=== PATIENT | male | born 1935 | race Caucasian/White ===

== ENCOUNTER 2020-12-30 18:37 | Emergency (ER) | payer MEDICARE, BC, SELFPAY ==
[2020-12-30 19:00] VITALS: BP 190/115; PULSE 105; RESP 16; TEMP 36.5; O2SAT 97; BMI 21.5
--- NOTE | 2020-12-30 19:09 | CTR_ITS ---
PROCEDURE INFORMATION: Exam: CT Cervical Spine Without Contrast Exam date and time: 12/30/2020 7:15 PM Age: 85 years old Clinical indication: Injury or trauma; Blunt trauma; Patient HX: C/O confusion and 2 x falls today; Additional info: Fall TECHNIQUE: Imaging protocol: Computed tomography images of the cervical spine without contrast. Radiation optimization: All CT scans at this facility use at least one of these dose optimization techniques: automated exposure control; mA and/or kV adjustment per patient size (includes targeted exams where dose is matched to clinical indication); or iterative reconstruction. COMPARISON: No relevant prior studies available. RADIATION DOSE METRICS: Total DLP (mGy-cm): 556.35 FINDINGS: Vertebrae: No acute fractures. No traumatic malalignment. Reversal of curvature. Severe diffuse spondyloarthropathy. There is very severe to complete disc height loss at each level. Osteophytic spurring of the vertebral endplates diffusely. Scattered vertebral endplate erosions. Soft tissues: Unremarkable. Vasculature: Bilateral carotid artery bulb region calcified atherosclerotic plaque formation. Lungs: Lung apices are normal. CT/CT cervical spin wo con* [id number] IMPRESSION: Negative for acute cervical spine fracture. Radiation Dose CTDIVOL = (mGy): DLP = 556.35 (mGy-cm)
--- NOTE | 2020-12-30 19:09 | XRR_ITS ---
PROCEDURE INFORMATION: Exam: XR Chest Exam date and time: 12/30/2020 7:46 PM Age: 85 years old Clinical indication: Other: Ams/confusion/disorientation TECHNIQUE: Imaging protocol: XR of the chest Views: 1 view. COMPARISON: No relevant prior studies available. FINDINGS: Lungs: Unremarkable. No consolidation. Pleural spaces: Unremarkable. No pleural effusion. No pneumothorax. Heart/Mediastinum: Unremarkable. No cardiomegaly. Mild atherosclerosis of thoracic aorta. Bones/joints: Unremarkable. Moderate glenohumeral joint osteoarthritis changes. XR/XR chest 1V portable [id number] IMPRESSION: No acute findings.
--- NOTE | 2020-12-30 19:09 | CTR_ITS ---
PROCEDURE INFORMATION: Exam: CT Head Without Contrast Exam date and time: 12/30/2020 7:15 PM Age: 85 years old Clinical indication: Altered mental status/memory loss; Confusion or disorientation; Patient HX: C/O confusion and 2x falls today denies loc; Additional info: Fall/confusion TECHNIQUE: Imaging protocol: Computed tomography of the head without contrast. Radiation optimization: All CT scans at this facility use at least one of these dose optimization techniques: automated exposure control; mA and/or kV adjustment per patient size (includes targeted exams where dose is matched to clinical indication); or iterative reconstruction. COMPARISON: No relevant prior studies available. RADIATION DOSE METRICS: Total DLP (mGy-cm): 943.1 FINDINGS: Brain: There is moderate cerebral atrophy. There is mild diffuse heterogeneity of the white matter attenuation, consistent with chronic white matter ischemic changes. No intracranial hemorrhage. Egan matter and white matter interfaces are preserved. No intracranial mass. No acute brain ischemia. No midline shift of brain. Cerebral ventricles: No ventriculomegaly. Bones/joints: Unremarkable. No acute fracture. Paranasal sinuses: Visualized sinuses are unremarkable. No fluid levels. Mastoid air cells: Visualized mastoid air cells are well aerated. Orbital cavity: Orbits are symmetric. Vasculature: Scattered intracranial atherosclerosis. Soft tissues: Unremarkable. CT/CT head wo con* [id number] IMPRESSION: Negative for acute intracranial abnormality. Radiation Dose CTDIVOL = (mGy): DLP = 943.1 (mGy-cm)
--- NOTE | 2020-12-30 19:25 | ED_ITS ---
Documented by User: BRENDA Wadsworth 12/30/20 23:32 HPI - Altered Mental Status General: Chief Complaint: Fall Stated Complaint: disoriented, stomach pain Time Seen by Provider: 12/30/20 19:11 Source: patient and police Mode of arrival: other (police) Limitations: altered mental status History of Present Illness: HPI narrative: Patient is an 85-year-old male who presents to ED today via police for complaints of altered mental status. chief medical officer in the room tells me that patient apparently lives in [place], [place]. The officer received a call this afternoon stating there was an elderly gentleman at the [place] boat [place] that appeared disoriented. The [place] police officer came and picked patient up. Officer states that patient slept in his truck last night. Patient has no idea how or why he got to the boat ramp. Patient told the officer he is a . Patient cannot tell me any family members to get a hold of for further history. Patient tells me he sustained two separate falls today because his knees gave out . Patient reports intermittent stomach pains for several months. He tells me he sees his primary care provider regularly. Patient can tell me his full name, , current address. MD complaint: altered mental status and confusion Onset (ago): unknown Associated symptoms: Reports no associated symptoms Review of Systems Const: Denies: fever(s) or chills Eyes: Denies: change in vision Card: Denies: chest pain Resp: Denies: dyspnea GI: Reports: abdominal pain; Denies: nausea, vomiting, diarrhea or change in stool character : Denies: flank pain or dysuria Musc: Reports: extremity pain (bilateral knees); Denies: neck pain, back pain, extremity swelling, joint pain or joint swelling Neuro: Denies: headache(s) or dizziness Physical Exam Const: COMMON NORMALS: no acute distress, average body habitus, alert and well nourished EXAM LIMITATIONS: altered mental status GENERAL APPEARANCE: cooperative ORIENTATION/CONSCIOUSNESS: Yes awake and Yes oriented to person HENMT: COMMON NORMALS: normocephalic HEAD & SCALP: normocephalic and other (small abrasion to L forehead) Eye: COMMON NORMALS: Equal, round and reactive pupils present and EOMs intact bilaterally GENERAL EYE: appearance normal, both eyes and all related structures PUPIL: Yes Equal, round and reactive pupils present Neck/C-Spine: COMMON NORMALS: full ROM CERVICAL SPINE: No pain with cervical ROM and No Cervical spine tenderness Resp: COMMON NORMALS: normal respiratory effort and clear to auscultation bilaterally AUSCULTATION: clear to auscultation bilaterally Cardio: COMMON NORMALS: regular rate and regular rhythm RATE: regular rate RHYTHM: regular rhythm GI: COMMON NORMALS: Normal to inspection, nondistended, normoactive bowel sounds present, Soft to palpation, non-tender, No hepatosplenomegaly present and no masses PALPATION: Yes Soft to palpation and Yes No hepatosplenomegaly present Extremity: NARRATIVE EXTREMITY EXAM: small abrasion to L anterior knee GENERAL: Yes normal exam except as noted Neuro: JONNATHAN COMA SCALE: document GCS findings Venus coma scale eye opening: Spontaneous Jonnathan coma scale verbal response: Orientated Venus coma scale motor response: Obey commands Jonnathan coma scale total score: 15 COMMON NORMALS: CN's II-XII intact bilaterally, moves all extremities, no focal motor deficits, no sensory deficits noted and gait normal SENSORIUM/ORIENTATION: Yes alert and Yes oriented to person Course Vital Signs: Vital signs: Vital Signs Temperature 97.7 F 12/30/20 19:00 Pulse Rate 64 12/31/20 03:38 Respiratory Rate 16 12/31/20 03:38 Blood Pressure 147/109 12/30/20 23:03 Pulse Oximetry 94 12/31/20 03:38 MDM - Altered Mental Status MDM Narrative: Medical decision making narrative: Patient had a card on him that had a phone number and said it was his power of claim attorney. They were located in [place]. We have tried contacting his number several times and have left messages. chief medical officer contacted [facility] who did a drive by of patient's residence in [place]. They did confirm that patient lives on [address] like he [place] said. They knocked on the door of one of patient's neighbors and they were aware of patient. They said they would be willing to come get patient in the morning however they are elderly and cannot drive tonight. They do state patient at baseline is a little confused. Patient's work-up here overall looks okay. His urine is suspicious for a UTI as he has 55-[address] shows chronic changes. I will start patient on IV antibiotics. I have spoken to Dr. Ceballos about the best course of action for this patient. He recommends discharging from the ED and having neighbors come pick him up in the morning. Lab Data: Labs: Lab Results 12/30/20 12/30/20 12/30/20 Range/Units 19:40 19:40 19:40 WBC 9.8 (4.0-10.0) 10^3/ uL RBC 4.52 (4.1-5.3) 10^6/u L Hgb 14.0 (11.7-16.6) g/dL Hct 43.2 (42.0-52.0) % MCV 95.6 H (80-94) fL MCH 31.0 (28.0-34.0) pg MCHC 32.4 (30.0-36.0) g/dL RDW 14.1 (12.1-15.1) % Plt Count 206 (130-400) 10^3/c mm MPV 10.9 H (7.4-10.4) fL Neut % (Auto) 84.6 % Lymph % (Auto) 6.6 % [place] % (Auto) 8.0 % Eos % (Auto) 0.1 % Baso % (Auto) 0.4 % Neut # (Auto) 8.31 H (1.8-7.7) 10^3/u L Lymph # (Auto) 0.7 L (0.8-4.8) 10^3/u L [place] # (Auto) 0.8 (0.2-0.9) 10^3/u L Eos # (Auto) 0.0 (0.0-0.8) 10^3/u L Baso # (Auto) 0.0 (0.0-0.1) 10^3/u L Nucleated RBC % (a uto) 0 % Nucleated RBCs # 0.0 /100WBC Sodium 137 (136-145) mmol/L Potassium 3.7 (3.5-5.1) mmol/L Chloride 100 (98-107) mmol/L Carbon Dioxide 25 (22-29) mmol/L Anion Gap 15.7 (5-19) BUN 15 (8-23) mg/dL Creatinine 0.9 (0.7-1.2) mg/dL GFR Calculation Not Reportable Glucose 100 (65-115) mg/dL Calculated Osmolal ity 285 (285-295) mOsm/k g Lactic Acid 1.3 (0.5-2.2) mmol/L Calcium 9.1 (8.5-10.5) mg/dL Total Bilirubin 1.1 (0.15-1.2) mg/dL AST 26 (0-40) U/L ALT 11 (0-41) U/L Alkaline Phosphata se 92 (40-130) IU/L Total Protein 7.2 (6.6-8.7) g/dL Albumin 4.7 (3.5-5.2) g/dL Globulin 2.5 (1.3-4.6) g/dL Urine Color (Yellow) Urine Appearance (CLEAR) Urine pH (5-7) Ur Specific Gravit y (1.005-1.030) Urine Protein (Negative) Urine Glucose (UA) (Normal) Urine Ketones (Negative) Urine Blood (Negative) Urine Nitrate (Negative) Urine Bilirubin (Negative) Urine Urobilinogen (Negative) mg/dL Ur Leukocyte Jen ase (Negative) Urine RBC (0-2) /hpf Urine WBC (0-5) /hpf Ur Squamous Epith Cells (0-5) /hpf Amorphous Sediment Urine Bacteria (NONE) /hpf 12/30/20 Range/Units 20:40 WBC (4.0-10.0) 10^3/ uL RBC (4.1-5.3) 10^6/u L Hgb (11.7-16.6) g/dL Hct (42.0-52.0) % MCV (80-94) fL MCH (28.0-34.0) pg MCHC (30.0-36.0) g/dL RDW (12.1-15.1) % Plt Count (130-400) 10^3/c mm MPV (7.4-10.4) fL Neut % (Auto) % Lymph % (Auto) % [place] % (Auto) % Eos % (Auto) % Baso % (Auto) % Neut # (Auto) (1.8-7.7) 10^3/u L Lymph # (Auto) (0.8-4.8) 10^3/u L [place] # (Auto) (0.2-0.9) 10^3/u L Eos # (Auto) (0.0-0.8) 10^3/u L Baso # (Auto) (0.0-0.1) 10^3/u L Nucleated RBC % (a uto) % Nucleated RBCs # /100WBC Sodium (136-145) mmol/L Potassium (3.5-5.1) mmol/L Chloride (98-107) mmol/L Carbon Dioxide (22-29) mmol/L Anion Gap (5-19) BUN (8-23) mg/dL Creatinine (0.7-1.2) mg/dL GFR Calculation Glucose (65-115) mg/dL Calculated Osmolal ity (285-295) mOsm/k g Lactic Acid (0.5-2.2) mmol/L Calcium (8.5-10.5) mg/dL Total Bilirubin (0.15-1.2) mg/dL AST (0-40) U/L ALT (0-41) U/L Alkaline Phosphata se (40-130) IU/L Total Protein (6.6-8.7) g/dL Albumin (3.5-5.2) g/dL Globulin (1.3-4.6) g/dL Urine Color Yellow (Yellow) Urine Appearance Sl hazy (CLEAR) Urine pH 5 (5-7) Ur Specific Gravit y 1.020 (1.005-1.030) Urine Protein Trace (Negative) Urine Glucose (UA) Norm (Normal) Urine Ketones 1+ H (Negative) Urine Blood 2+ H (Negative) Urine Nitrate Negative (Negative) Urine Bilirubin Neg (Negative) Urine Urobilinogen Norm (Negative) mg/dL Ur Leukocyte Jen ase Negative (Negative) Urine RBC 0-4 H (0-2) /hpf Urine WBC 55-80 H (0-5) /hpf Ur Squamous Epith Cells 0-4 H (0-5) /hpf Amorphous Sediment Not Reportable Urine Bacteria 1+ H (NONE) /hpf Imaging Data^: CT Head: Radiologist's impression: [address] [address] [address] Scan Report Signed Patient: Marnie Galvez #: [id number] : 5Acct#:[id number] Age/Sex: 85 / MADM Date: 12/30/20 Loc: ERRoom/Bed: Attending Dr: Ordering Provider/Ordering MD: Floridalma Chaney Date of Service: 12/30/20 Procedure(s): CT head wo con* [id number] Accession Number(s): [id number] Report Number: [id number] PROCEDURE INFORMATION: Exam: CT Head Without Contrast Exam date and time: 12/30/2020 7:15 PM Age: 85 years old Clinical indication: Altered mental status/memory loss; Confusion or disorientation; Patient HX: C/O confusion and 2x falls today denies loc; Additional info: Fall/confusion TECHNIQUE: Imaging protocol: Computed tomography of the head without contrast. Radiation optimization: All CT scans at this facility use at least one of these dose optimization techniques: automated exposure control; mA and/or kV adjustment per patient size (includes targeted exams where dose is matched to clinical indication); or iterative reconstruction. COMPARISON: No relevant prior studies available. RADIATION DOSE METRICS: Total DLP (mGy-cm): 943.1 FINDINGS: Brain: There is moderate cerebral atrophy. There is mild diffuse heterogeneity of the white matter attenuation, consistent with chronic white matter ischemic changes. No intracranial hemorrhage. Egan matter and white matter interfaces are preserved. No intracranial mass. No acute brain ischemia. No midline shift of brain. Cerebral ventricles: No ventriculomegaly. Bones/joints: Unremarkable. No acute fracture. Paranasal sinuses: Visualized sinuses are unremarkable. No fluid levels. Mastoid air cells: Visualized mastoid air cells are well aerated. Orbital cavity: Orbits are symmetric. Vasculature: Scattered intracranial atherosclerosis. Soft tissues: Unremarkable. CT/CT head wo con* [id number] IMPRESSION: Negative for acute intracranial abnormality. Radiation Dose CTDIVOL = (mGy): DLP = 943.1 (mGy-cm) Dictated By:Rosalino Beard Signed By:Scarlet Beard Date/Time:12/30/202007 DD/ 05 CT cervical: Radiologist's impression: [address] [place] [address] CT Scan Report Signed Patient: Misha Galvez Unit #: [id number] : 1935 Age/Sex: 85 / M ADM Date: 12/30/20 Loc: ER Room/Bed: Attending Dr: Ordering Provider/Ordering MD: Floridalma Chaney Date of Service: 12/30/20 Procedure(s): CT cervical spin wo con* [id number] Accession Number(s): [id number] Report Number: [id number] PROCEDURE INFORMATION: Exam: CT Cervical Spine Without Contrast Exam date and time: 12/30/2020 7:15 PM Age: 85 years old Clinical indication: Injury or trauma; Blunt trauma; Patient HX: C/O confusion and 2 x falls today; Additional info: Fall TECHNIQUE: Imaging protocol: Computed tomography images of the cervical spine without contrast. Radiation optimization: All CT scans at this facility use at least one of these dose optimization techniques: automated exposure control; mA and/or kV adjustment per patient size (includes targeted exams where dose is matched to clinical indication); or iterative reconstruction. COMPARISON: No relevant prior studies available. RADIATION DOSE METRICS: Total DLP (mGy-cm): 556.35 FINDINGS: Vertebrae: No acute fractures. No traumatic malalignment. Reversal of curvature. Severe diffuse spondyloarthropathy. There is very severe to complete disc height loss at each level. Osteophytic spurring of the vertebral endplates diffusely. Scattered vertebral endplate erosions. Soft tissues: Unremarkable. Vasculature: Bilateral carotid artery bulb region calcified atherosclerotic plaque formation. Lungs: Lung apices are normal. CT/CT cervical spin wo con* [id number] IMPRESSION: Negative for acute cervical spine fracture. Radiation Dose CTDIVOL = (mGy): DLP = 556.35 (mGy-cm) Dictated By: Rosalino Beard Signed By: Rosalino Beard Signed Date/Time: 12/30/202010 DD/ 08 CXR: Radiologist's impression: [address] [address] XRay Report Signed Patient: Misha Galvez Unit #: [id number] : 1935 Age/Sex: 85 / M ADM Date: 12/30/20 Loc: ER Room/Bed: Attending Dr: Ordering Provider/Ordering MD: Floridalma Chaney Date of Service: 12/30/20 Procedure(s): XR chest 1V portable [id number] Accession Number(s): [id number] Report Number: [id number] PROCEDURE INFORMATION: Exam: XR Chest Exam date and time: 12/30/2020 7:46 PM Age: 85 years old Clinical indication: Other: Ams/confusion/disorientation TECHNIQUE: Imaging protocol: XR of the chest Views: 1 view. COMPARISON: No relevant prior studies available. FINDINGS: Lungs: Unremarkable. No consolidation. Pleural spaces: Unremarkable. No pleural effusion. No pneumothorax. Heart/Mediastinum: Unremarkable. No cardiomegaly. Mild atherosclerosis of thoracic aorta. Bones/joints: Unremarkable. Moderate glenohumeral joint osteoarthritis changes. XR/XR chest 1V portable [id number] IMPRESSION: No acute findings. Dictated By: Rosalino Beard Signed By: Rosalino Beard Signed Date/Time: 12/30/202018 DD/ 16 Discharge Plan Discharge Patient Disposition: Home Clinical Impression: Urinary tract infection Qualifiers: Urinary tract infection type: acute cystitis Hematuria presence: with hematuria Qualified Code(s): N30.01 - Acute cystitis with hematuria Condition: Stable Prescriptions: New Macrobid 100 mg capsule 100 mg PO BID 7 Days Qty: 14 RF: 0 Discharge Orders: Discharge ED (Routine); Ordered 12/30/20 Ordered By: Floridalma Chaney Patient Instructions: Urinary Tract Infection in Men (ED) Coding Level of Care Code ED Communications Marketing Intern for Chg Fwd Exam Comprehensive Documented by User: Lisy Ceballos MD, [facility] – [place], [place] 01/01/21 00:50 HPI - Altered Mental Status General: Chief Complaint: Fall Stated Complaint: disoriented, stomach pain Time Seen by Provider: 12/30/20 19:11 Course Vital Signs: Vital signs: Vital Signs Temperature 97.7 F 12/30/20 19:00 Pulse Rate 64 12/31/20 03:38 Respiratory Rate 16 12/31/20 03:38 Blood Pressure 147/109 12/30/20 23:03 Pulse Oximetry 94 12/31/20 03:38 MDM - Altered Mental Status MDM Narrative: Medical decision making narrative: Kindly see the nurse practitioner's note for complete history and physical examination. I agree with her findings. Essentially this is a pleasant 85-year-old male who likely has onset of dementia. He drove down from [place] to this area yesterday and he does not know why. He was found at the side of the road and was confused. Police brought him here for evaluation. In the emergency department evaluation is unremarkable and we were able to get in touch with his neighbors who will come get him tomorrow morning. He will be kept here overnight until then. Medical Records: Attestation: I reviewed the patient's medical records. Lab Data: Attestation: I reviewed the patient's lab results. Labs: Lab Results 12/30/20 12/30/20 12/30/20 Range/Units 19:40 19:40 19:40 WBC 9.8 (4.0-10.0) 10^3/ uL RBC 4.52 (4.1-5.3) 10^6/u L Hgb 14.0 (11.7-16.6) g/dL Hct 43.2 (42.0-52.0) % MCV 95.6 H (80-94) fL MCH 31.0 (28.0-34.0) pg MCHC 32.4 (30.0-36.0) g/dL RDW 14.1 (12.1-15.1) % Plt Count 206 (130-400) 10^3/c mm MPV 10.9 H (7.4-10.4) fL Neut % (Auto) 84.6 % Lymph % (Auto) 6.6 % [place] % (Auto) 8.0 % Eos % (Auto) 0.1 % Baso % (Auto) 0.4 % Neut # (Auto) 8.31 H (1.8-7.7) 10^3/u L Lymph # (Auto) 0.7 L (0.8-4.8) 10^3/u L [place] # (Auto) 0.8 (0.2-0.9) 10^3/u L Eos # (Auto) 0.0 (0.0-0.8) 10^3/u L Baso # (Auto) 0.0 (0.0-0.1) 10^3/u L Nucleated RBC % (a uto) 0 % Nucleated RBCs # 0.0 /100WBC Sodium 137 (136-145) mmol/L Potassium 3.7 (3.5-5.1) mmol/L Chloride 100 (98-107) mmol/L Carbon Dioxide 25 (22-29) mmol/L Anion Gap 15.7 (5-19) BUN 15 (8-23) mg/dL Creatinine 0.9 (0.7-1.2) mg/dL GFR Calculation Not Reportable Glucose 100 (65-115) mg/dL Calculated Osmolal ity 285 (285-295) mOsm/k g Lactic Acid 1.3 (0.5-2.2) mmol/L Calcium 9.1 (8.5-10.5) mg/dL Total Bilirubin 1.1 (0.15-1.2) mg/dL AST 26 (0-40) U/L ALT 11 (0-41) U/L Alkaline Phosphata se 92 (40-130) IU/L Total Protein 7.2 (6.6-8.7) g/dL Albumin 4.7 (3.5-5.2) g/dL Globulin 2.5 (1.3-4.6) g/dL Urine Color (Yellow) Urine Appearance (CLEAR) Urine pH (5-7) Ur Specific Gravit y (1.005-1.030) Urine Protein (Negative) Urine Glucose (UA) (Normal) Urine Ketones (Negative) Urine Blood (Negative) Urine Nitrate (Negative) Urine Bilirubin (Negative) Urine Urobilinogen (Negative) mg/dL Ur Leukocyte Jen ase (Negative) Urine RBC (0-2) /hpf Urine WBC (0-5) /hpf Ur Squamous Epith Cells (0-5) /hpf Amorphous Sediment Urine Bacteria (NONE) /hpf 12/30/20 Range/Units 20:40 WBC (4.0-10.0) 10^3/ uL RBC (4.1-5.3) 10^6/u L Hgb (11.7-16.6) g/dL Hct (42.0-52.0) % MCV (80-94) fL MCH (28.0-34.0) pg MCHC (30.0-36.0) g/dL RDW (12.1-15.1) % Plt Count (130-400) 10^3/c mm MPV (7.4-10.4) fL Neut % (Auto) % Lymph % (Auto) % [place] % (Auto) % Eos % (Auto) % Baso % (Auto) % Neut # (Auto) (1.8-7.7) 10^3/u L Lymph # (Auto) (0.8-4.8) 10^3/u L [place] # (Auto) (0.2-0.9) 10^3/u L Eos # (Auto) (0.0-0.8) 10^3/u L Baso # (Auto) (0.0-0.1) 10^3/u L Nucleated RBC % (a uto) % Nucleated RBCs # /100WBC Sodium (136-145) mmol/L Potassium (3.5-5.1) mmol/L Chloride (98-107) mmol/L Carbon Dioxide (22-29) mmol/L Anion Gap (5-19) BUN (8-23) mg/dL Creatinine (0.7-1.2) mg/dL GFR Calculation Glucose (65-115) mg/dL Calculated Osmolal ity (285-295) mOsm/k g Lactic Acid (0.5-2.2) mmol/L Calcium (8.5-10.5) mg/dL Total Bilirubin (0.15-1.2) mg/dL AST (0-40) U/L ALT (0-41) U/L Alkaline Phosphata se (40-130) IU/L Total Protein (6.6-8.7) g/dL Albumin (3.5-5.2) g/dL Globulin (1.3-4.6) g/dL Urine Color Yellow (Yellow) Urine Appearance Sl hazy (CLEAR) Urine pH 5 (5-7) Ur Specific Gravit y 1.020 (1.005-1.030) Urine Protein Trace (Negative) Urine Glucose (UA) Norm (Normal) Urine Ketones 1+ H (Negative) Urine Blood 2+ H (Negative) Urine Nitrate Negative (Negative) Urine Bilirubin Neg (Negative) Urine Urobilinogen Norm (Negative) mg/dL Ur Leukocyte Jen ase Negative (Negative) Urine RBC 0-4 H (0-2) /hpf Urine WBC 55-80 H (0-5) /hpf Ur Squamous Epith Cells 0-4 H (0-5) /hpf Amorphous Sediment Not Reportable Urine Bacteria 1+ H (NONE) /hpf Discharge Plan Discharge Patient Disposition: Home Clinical Impression: Urinary tract infection Qualifiers: Urinary tract infection type: acute cystitis Hematuria presence: with hematuria Qualified Code(s): N30.01 - Acute cystitis with hematuria Condition: Stable Prescriptions: New Macrobid 100 mg capsule 100 mg PO BID 7 Days Qty: 14 RF: 0 Discharge Orders: Discharge ED (Routine); Ordered 12/30/20 Ordered By: Floridalma Chaney Patient Instructions: Urinary Tract Infection in Men (ED) Coding Level of Care Code ED Communications Marketing Intern for [place] Fwd Exam Comprehensive
[2020-12-30 19:52] LABS: Basophils % 0.4 %; Eosinophils % 0.1 %; Hematocrit 43.2 % (42.0-52.0); Lymphocytes # 0.7 10^3/uL (0.8-4.8); Lymphocytes % 6.6 %; Mean Corpuscular HGB Conc 32.4 g/dL (30.0-36.0); Mean Corpuscular Volume 95.6 fL (80-94); Mean Platelet Volume 10.9 fL (7.4-10.4); Monocytes # 0.8 10^3/uL (0.2-0.9); Neutrophils # 8.31 10^3/uL (1.8-7.7); Neutrophils % 84.6 %; Nucleated Red Blood Cells % 0 %; Platelet Count 206 10^3/cmm (130-400); Red Blood Count 4.52 10^6/uL (4.1-5.3); Red Cell Distribution Width 14.1 % (12.1-15.1); White Blood Count 9.8 10^3/uL (4.0-10.0)
[2020-12-30 20:01] VITALS: BP 176/96; PULSE 79; RESP 14; O2SAT 98
[2020-12-30 20:02] LABS: Alanine Aminotransferase 11 U/L (0-41); Albumin Level 4.7 g/dL (3.5-5.2); Alkaline Phosphatase 92 IU/L (40-130); Anion Gap 15.7 (5-19); Aspartate Amino Transferase 26 U/L (0-40); Blood Urea Nitrogen 15 mg/dL (8-23); Calcium 9.1 mg/dL (8.5-10.5); Carbon Dioxide 25 mmol/L (22-29); Chloride 100 mmol/L (98-107); Globulin 2.5 g/dL (1.3-4.6); Glucose 100 mg/dL (65-115); Osmolality Calculated 285 mOsm/kg (285-295); Potassium 3.7 mmol/L (3.5-5.1); Sodium 137 mmol/L (136-145); Total Bilirubin 1.1 mg/dL (0.15-1.2); Total Protein 7.2 g/dL (6.6-8.7)
[2020-12-30 20:03] LABS: Lactic Sepsis W/Reflex 1.3 mmol/L (0.5-2.2)
[2020-12-30 20:43] VITALS: BP 193/114; PULSE 85; RESP 16; O2SAT 97
[2020-12-30 21:22] VITALS: BP 176/110; PULSE 77; RESP 14; O2SAT 99
[2020-12-30 21:26] LABS: Add Urine Culture? Yes; Add Urine Microscopic? YES; Bacteria Urine 1+ /hpf; Bilirubin Urine Neg (Negative); Blood Urine 2+ (Negative); Glucose Urine UA Norm (Normal); Ketones Urine 1+ (Negative); Leukocyte Esterase Urine Negative (Negative); Nitrate Urine Negative (Negative); Protein Urine Trace (Negative); RBC Urine 0-4 /hpf (0-2); Squamous Epithelial Cell Urine 0-4 /hpf (0-5); Urine Appearance SL Hazy (CLEAR); Urine Color Yellow (Yellow); Urobilinogen Urine Norm (Negative); WBC Urine 55-80 /hpf (0-5); pH Urine 5 (5-7)
[2020-12-30] MEDS: cefTRIAXone 1,000 MG in sodium chloride 0.9% (plus) 50 ML 100 MG IV (21:47)
[2020-12-30 23:00] VITALS: BP 147/109; PULSE 78; RESP 14; O2SAT 95
[2020-12-30 23:03] VITALS: BP 147/109; PULSE 92; RESP 16; O2SAT 95
[2020-12-31 03:38] VITALS: PULSE 64; RESP 16; O2SAT 94
== END 2020-12-31 11:50 | disposition home or self-care (01) ==
PROVIDERS: Emergency Provider Physician Assistant
DX: N30.01 Acute cystitis with hematuria (principal)
CPT/HCPCS: 70450; 71045; 72125; 80053; 81001; 83605; 85025; 87077; 87086; 87186; 96365; 99284; J0696